=== PATIENT | female | born 1990 | race African-American/Black ===

== ENCOUNTER 2020-06-28 16:10 | Emergency (ER) | payer OTHER ==
[~2020-06-28] VITALS: Ht 152.4 cm; Wt 77.1 kg
[2020-06-28 16:28] VITALS: BP 112/78
[2020-06-28] MEDS ORDERED: ONDANSETRON ODT 4 MG TAB PO ONE (18:00)
== END 2020-06-28 18:08 | disposition home or self-care (01) ==
LOC: ER 16:10
DX: S09.90XA Unspecified injury of head, initial encounter (principal); M62.838 Other muscle spasm; F41.9 Anxiety disorder, unspecified; V90.89XA Drowning and submersion due to other accident to unspecified watercraft, initial encounter; Y93.89 Activity, other specified; Y92.89 Other specified places as the place of occurrence of the external cause; Y99.8 Other external cause status
CPT/HCPCS: 70450; 72125; 81025; 99285; Q0162